=== PATIENT | male | born 1965 | race Asian ===

== ENCOUNTER 2016-06-27 11:03 | Emergency (ER) | payer SELFPAY ==
[~2016-06-27 11:03] MED LIST: Sodium Chloride 0.9% 100 ML BAG ONE
[2016-06-27] MEDS ORDERED: Lidocaine 2% w/Epinephrine 1:200K 20 ML VIAL ONE (11:30)
[2016-06-27] MEDS ORDERED: Triple Antibiotic Oint 1 GM Packet ONE (11:32)
[2016-06-27] MEDS ORDERED: Piperacillin/Tazobactam 4.5 GM VIAL ONE (11:32)
[2016-06-27] MEDS ORDERED: Labetalol HCl 100 MG/20 ML VIAL ONE (11:32)
[2016-06-27] MEDS ORDERED: Clindamycin 150 MG CAP ONE (12:21)
[2016-06-27] MEDS ORDERED: Adacel (T-DAP) 0.5 ML VIAL ONE (12:21)
[2016-06-27] MEDS ORDERED: Cephalexin 500 MG CAP ONE (12:21)
[2016-06-27] MEDS ORDERED: Acetaminophen 500 MG TAB ONE (13:09)
== END 2016-06-27 13:25 | disposition home or self-care (01) ==
LOC: MADERS 11:03
DX: L02.415 Cutaneous abscess of right lower limb (principal); I25.2 Old myocardial infarction; F17.220 Nicotine dependence, chewing tobacco, uncomplicated; Z79.899 Other long term (current) drug therapy
CPT/HCPCS: 10060; 87070; 87077; 87186; 87205; 90471; 90715; 96365; 96375; J2543; J7050

== ENCOUNTER 2018-01-16 10:43 | Outpatient (CLI) | payer SELFPAY ==
[2018-01-18 15:58] LABS: Anion Gap 13 mmol/L (10-20); BUN (Urea Nitrogen) 17 mg/dL (8.4-25.7); Calc. Creatinine Clearance 0 mL/min (70-130); Carbon Dioxide 25 mmol/L (22-29); Chloride 103 mmol/L (98-107); Estimated GFR-MDRD 56; Glucose 236 mg/dL (70-105); Potassium 4.6 mmol/L (3.5-5.1); Sodium 136 mmol/L (136-145)
[2018-01-18 15:59] LABS: AST (SGOT) 20 U/L (5-34); Albumin 4.4 g/dL (3.5-5.0); Alkaline Phosphatase 101 U/L (40-150); Bilirubin, Total 0.7 mg/dL (0.2-1.2); Calcium 9.8 mg/dL (7.8-10.44); Cholesterol 225 mg/dL (< 200 Desired); Globulin 3.7 g/dL (2.4-3.5); Protein, Total 8.1 g/dL (6.0-8.3); Uric Acid 6.3 mg/dL (3.5-7.2)
[2018-01-18 16:00] LABS: ALT (SGPT) 28 U/L (8-55); Cardiac Risk 3.8 (Less than 4.5); HDL Cholesterol 59 mg/dL (>60 Neg Risk); LDL Cholesterol, Calculated 150 mg/dL; Triglycerides 81 mg/dL (Less than 150)
== END 2018-01-16 10:44 | disposition home or self-care (01) ==
LOC: MADLAB 10:43
PROVIDERS: ATTEND Family Medicine
DX: I10 Essential (primary) hypertension (principal)
CPT/HCPCS: 36415; 80053; 80061; 84550

== ENCOUNTER 2022-08-06 12:56 | Outpatient (CLI) | payer SELFPAY ==
[2022-08-06 13:43] LABS: ALT (SGPT) 16 U/L (8-55); AST (SGOT) 19 U/L (5-34); Albumin 4.3 g/dL (3.5-5.0); Alkaline Phosphatase 93 U/L (40-110); Anion Gap 14 mmol/L (10-20); BUN (Urea Nitrogen) 19 mg/dL (8.4-25.7); Bilirubin, Total 0.9 mg/dL (0.2-1.2); Calc. Creatinine Clearance 0 mL/min (70-130); Calcium 9.4 mg/dL (7.8-10.44); Carbon Dioxide 24 mmol/L (22-29); Cardiac Risk 3.2 (Less than 4.5); Chloride 104 mmol/L (98-107); Cholesterol 138 mg/dl (< 200 Desired); Estimated GFR 64; Globulin 3.4 g/dL (2.4-3.5); Glucose 86 mg/dL (70-105); HDL Cholesterol 43 mg/dL (>60 Neg Risk); LDL Cholesterol, Calculated 45 mg/dL; Protein, Total 7.7 g/dL (6.0-8.3); Sodium 138 mmol/L (136-145); Triglycerides 251 mg/dL (Less than 150); Uric Acid 6.2 mg/dL (3.5-7.2)
[2022-08-06 16:54] LABS: Hemoglobin A1c 7.1 % (4.0-6.0)
== END 2022-08-06 12:57 | disposition home or self-care (01) ==
LOC: MADLABBHPM 12:56 → MADLAB 12:57
PROVIDERS: ATTEND Family Medicine
DX: E11.9 Type 2 diabetes mellitus without complications (principal); M10.00 Idiopathic gout, unspecified site; E78.2 Mixed hyperlipidemia
CPT/HCPCS: 80053; 80061; 83036; 84550